=== PATIENT | female | born 1945 | race Caucasian/White ===

== ENCOUNTER 2018-05-25 08:19 | Emergency (ER) | payer MEDICARE ==
[2018-05-25] MEDS: CYCLOBENZAPRINE 5MG TABLET PO (09:17)
[2018-05-25] MEDS: MORPHINE 10 MG/ML 1ML VIAL (J2270) IM (09:18)
== END 2018-05-25 10:28 | disposition home or self-care (01) ==
LOC: M ED 08:19
DX: M54.42 Lumbago with sciatica, left side (principal); R51 Headache; E03.9 Hypothyroidism, unspecified; Z79.899 Other long term (current) drug therapy; Z88.0 Allergy status to penicillin; Z91.040 Latex allergy status
CPT/HCPCS: J2270